=== PATIENT | male | born 1980 | race American Indian/Alaskan Native ===

== ENCOUNTER 2017-10-12 18:19 | Emergency (ER) | payer OTHER ==
[2017-10-12] MEDS ORDERED: DILAUDID ONE (18:39)
[2017-10-12] MEDS ORDERED: ZOFRAN ODT ONE (18:39)
[2017-10-12] MEDS ORDERED: DILAUDID IV ONE (18:41)
[2017-10-12] MEDS ORDERED: ZOFRAN ODT PO ONE (18:41)
[2017-10-12] MEDS ORDERED: AMIDATE IV ONE (18:51)
[2017-10-12] MEDS ORDERED: NACL 0.9% 1000 ML 1,000 ML IV ONE (18:51)
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
--- NOTE | 2017-10-12 19:10 | XRay Report ---
FINAL REPORT EXAM: XR SHOULDER 2+V RT HISTORY: right shoulder injury TECHNIQUE: AP and Y views of the right shoulder PRIORS: None. FINDINGS: There is an acute anterior dislocation of the right humeral head, located inferior and anterior to the glenoid rim. There is no evidence of acute fracture. The bony mineralization is normal. Soft tissues are unremarkable. IMPRESSION: Anterior dislocation of the right humeral head without evidence for fracture
--- NOTE | 2017-10-12 20:21 | XRay Report ---
FINAL REPORT PROCEDURE: XR SHOULDER 2+V RT 19:15 p.m. TECHNIQUE: Two view right shoulder HISTORY: POST REDUCTION SHOULDER PAIN COMPARISON: 10/12/2017 18:43 p.m. FINDINGS: Post reduction right shoulder. No definite fracture. Defect superior lateral right humeral head suspected IMPRESSION: Interval reduction right shoulder
[2017-10-12 20:22] VITALS: BP 127/91
== END 2017-10-12 20:23 | disposition home or self-care (01) ==
LOC: ED 18:19
DX: S43.004A Unspecified dislocation of right shoulder joint, initial encounter (principal); X58.XXXA Exposure to other specified factors, initial encounter; Y93.89 Activity, other specified; Y92.89 Other specified places as the place of occurrence of the external cause; Y99.8 Other external cause status
CPT/HCPCS: 23650; 73030; 96361; 96374; 99284; J1170; Q0162

== ENCOUNTER 2019-10-25 01:06 | Emergency (ER) | payer OTHER ==
[2019-10-25 01:21] VITALS: BP 151/92
[2019-10-25] MEDS ORDERED: AMOXICILLIN/K CLAV 875/125MG TAB PO ONE (01:33)
[2019-10-25] MEDS ORDERED: TETANUS,DIPH,PERTUSS(ACELL) VACCINE 0.5 ML SYRINGE IM ONE (01:38)
[2019-10-25] MEDS ORDERED: NEOMY 3.5 MG/BACIT 400 UNITS/POLY B 5000 UNITS/GM OINT PACKET TP ONE ×3 (01:44→02:05)
[2019-10-25] MEDS ORDERED: TETANUS,DIPHTHERIA TOXOID ADULT 0.5 ML INJ IM ONE (01:57)
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
== END 2019-10-25 03:04 | disposition home or self-care (01) ==
LOC: ED 01:06
DX: S51.852A Open bite of left forearm, initial encounter (principal); F17.200 Nicotine dependence, unspecified, uncomplicated; Z98.890 Other specified postprocedural states; Z79.2 Long term (current) use of antibiotics; Z79.899 Other long term (current) drug therapy; W50.3XXA Accidental bite by another person, initial encounter; Y93.89 Activity, other specified; Y92.89 Other specified places as the place of occurrence of the external cause; Y99.8 Other external cause status
CPT/HCPCS: 90715; A6250